=== PATIENT | male | born 1950 | race Caucasian/White ===

== ENCOUNTER 2016-12-21 10:48 | Day surgery (SDC) | payer OTHER ==
[2016-12-21] MEDS ORDERED: Gentamicin 80 mg/2mL Inj. ONE (11:56)
[2016-12-21] MEDS ORDERED: Gadodiamide 287 MG/ML VIAL (15ML) IV ONE (11:56)
[2016-12-21] MEDS ORDERED: ceFAZolin IV 1 gm in Dextrose 1 GM/50 ML BAG IVPB ONE (11:56)
[2016-12-21] MEDS ORDERED: Iohexol 300 50 ML ONE (11:57)
[2016-12-21] MEDS ORDERED: Midazolam 2 MG/2 ML VIAL ONE (12:33)
[2016-12-21] MEDS ORDERED: Lactated Ringer's 1,000 ML IV ONE ×2 (12:35)
[2016-12-21] MEDS ORDERED: Lidocaine Hydrochloride 5 ML INJ ONE (12:49)
[2016-12-21 13:49] VITALS: TEMP 97
[2016-12-21 13:55] VITALS: O2SAT 98
[2016-12-21 14:32] VITALS: BP 120/93; PULSE 67; RESP 14
--- NOTE | 2016-12-21 16:36 | RAD ---
PROCEDURE: INTRA UNDER FLUOROSCOPY- DISCOGRAPHY HISTORY: SPINAL STENOSIS L2-3 L5-S1 BULGE WITH SPINAL STENOSIS L3-4 L4-5 COMPARISON: NONE AVAILABLE TECHNIQUE: Intraoperative fluoroscopy was provided to the referring physician to assist in discography. FINDINGS: Please see operative report for further detail. IMPRESSION: Please see operative report for further detail. 72.3 seconds of fluoro time was utilized with a total radiation dose of 26.02 mGy.
== END 2016-12-21 15:02 | disposition home or self-care (01) ==
LOC: C.SDS 10:48
PROVIDERS: ATTEND Specialist
DX: M51.27 Other intervertebral disc displacement, lumbosacral region (principal); M54.17 Radiculopathy, lumbosacral region
CPT/HCPCS: 62290; 76000; 82948; A9579; J0690; J1580; J2250; J3010; J7120; Q9967